=== PATIENT | male | born 1940 | race African-American/Black ===

== ENCOUNTER 2016-12-05 14:00 | Outpatient (RCR) | payer OTHER ==
[~2016-12-05 14:00] MED LIST: ASPIR-LOW81 MG PO; BRIMONIDINE TART5 ML OPHTHALM; BUPROPION HCL150 M1 PO; CALCIUM 1,0001 EACH PO; COREG6.25 MG ORAL; FLOMAX0.4 MG PO; FLONASE1 SPRAYS NASAL; GNP GLUCOSAMIN PO; HYTRIN5 MG PO; LISINOPRIL-HCT1 EAC1 PO; LISINOPRIL-HCT1 EAC2 ORAL; MULTI-DAY VITA1 EACH PO; NIFEDICAL XL30 MG PO; NORVASC5 MG ORAL; OSTERA TABLET1 EACH PO; PAN-C 500 TABL1 EACH PO; PROSCAR5 MG PO; RANITIDINE HCL150 MG PO; TIMOLOL MALEATE5 ML OP; VALACYCLOVIR500 MG PO; [UNRECOGNIZED DRUG - OTHER] OP
== END 2016-12-06 | disposition home or self-care (01) ==
LOC: PTY 14:00
DX: M48.06 Spinal stenosis, lumbar region (principal); M54.5 Low back pain

== ENCOUNTER 2017-03-26 09:15 | Outpatient (RCR) | payer OTHER | END 2017-04-08 | disposition home or self-care (01) | LOC: PTY 09:15 | PROVIDERS: ATTEND Internal Medicine | DX: M48.061 Spinal stenosis, lumbar region without neurogenic claudication (principal) | CPT/HCPCS: 97110; 97140; 97162; G0283 ==

== ENCOUNTER 2017-05-12 13:00 | Outpatient (RCR) | payer OTHER | END 2017-06-06 | disposition home or self-care (01) | LOC: PTY 13:00 | DX: M48.061 Spinal stenosis, lumbar region without neurogenic claudication (principal) | CPT/HCPCS: 97110; 97140; G0283 ==

== ENCOUNTER 2017-06-12 09:00 | Outpatient (RCR) | payer OTHER | END 2017-07-06 | disposition home or self-care (01) | LOC: PTY 09:00 | DX: M48.061 Spinal stenosis, lumbar region without neurogenic claudication (principal) | CPT/HCPCS: 97032; 97110; 97140; G0283 ==

== ENCOUNTER 2017-07-07 09:14 | Outpatient (RCR) | payer OTHER | END 2017-08-06 | disposition home or self-care (01) | LOC: PTY 09:14 | DX: M48.061 Spinal stenosis, lumbar region without neurogenic claudication (principal) ==